=== PATIENT | male | born 1940 | race Caucasian/White ===

== ENCOUNTER 2017-04-24 13:25 | Day surgery (SDC) | payer MEDICARE, BC ==
[~2017-04-24] VITALS: Ht 167.6 cm; Wt 69.2 kg
[2017-04-24] VITALS (9 sets, daily range): BP systolic 114–161; BP diastolic 64–104
[~2017-04-24 13:25] MED LIST: AMLO2.5T2 PO; LISI1TAB11 PO; MELO-100 PO
[2017-04-24] MEDS ORDERED: LIDOcaine 1% (10mg/ml) 2ml vial ONE (13:42)
[2017-04-24] MEDS ORDERED: LORazepam 0.5 MG tablet PO PRN (13:55)
[2017-04-24] MEDS ORDERED: normal saline 1000ml 1,000 ML IV SCH (13:55)
[2017-04-24] MEDS ORDERED: diphenhydrAMINE 25mg capsule PO PRN (13:55)
[2017-04-24 14:27] LABS: PARTIAL THROMBOPLASTIN TIME 28 SECONDS (22-32)
[2017-04-24] MEDS ORDERED: DABI150C PO (14:40)
[2017-04-24] MEDS ORDERED: CHOL10002 PO (14:40)
[2017-04-24] MEDS ORDERED: Fish Oil PO (14:40)
[2017-04-24] MEDS ORDERED: LIDOcaine 1% 30ml vial 30 ML ONE (16:58)
[2017-04-24] MEDS ORDERED: iohexol 350MG/ML 100ml bottle IV ONE (16:58)
[2017-04-24] MEDS ORDERED: fentaNYL/PF 50MCG/1 ML 2ML syringe ONE (17:23)
[2017-04-24] MEDS ORDERED: midazolam 2 mg/2 ml injection ONE (17:24)
[2017-04-24] MEDS ORDERED: atropine 0.1mg/ml 10ml syringe ONE (17:39)
[2017-04-24] MEDS ORDERED: HYDROcodone/acetaminophen 10/325mg tab PO PRN (18:55)
[2017-04-24] MEDS ORDERED: ondansetron/PF 4mg/2ml inj IV PRN (18:55)
[2017-04-24] MEDS ORDERED: proCHLORperazine 10 MG/2 ml inj IV PRN (18:55)
[2017-04-24] MEDS ORDERED: HYDROcodone/acetaminophen 5mg/325mg tablet PO PRN (18:55)
[2017-04-24] MEDS ORDERED: OXAZEpam 15mg capsule PO PRN (18:55)
== END 2017-04-24 20:05 | disposition home or self-care (01) ==
LOC: SSTAY O 13:25
PROVIDERS: ATTEND Internal Medicine Interventional Cardiology
DX: I25.10 Atherosclerotic heart disease of native coronary artery without angina pectoris (principal); R94.39 Abnormal result of other cardiovascular function study; Z79.01 Long term (current) use of anticoagulants; I10 Essential (primary) hypertension; E78.2 Mixed hyperlipidemia; Z95.0 Presence of cardiac pacemaker
CPT/HCPCS: 36415; 85610; 85730; 93005; 93458; A6257; C1769; C1894; J1644; J2250; J3010; J3490; J7030; Q0163; Q9967; 99152; 99153; A4620; J0461